=== PATIENT | female | born 1990 | race African-American/Black ===

== ENCOUNTER 2022-12-14 10:10 | Outpatient (CLI) | payer MEDICARE, OTHER | END 2022-12-14 10:11 | disposition home or self-care (01) | LOC: CSHLAB 10:10 | PROVIDERS: ATTEND Obstetrics & Gynecology | DX: Z01.812 Encounter for preprocedural laboratory examination (principal); Z20.822 Contact with and (suspected) exposure to COVID-19 | CPT/HCPCS: 85014; 85018; 85049; 86780; 86850; 86870; 86900; 86901; 87340; 87389; U0002 ==

== ENCOUNTER 2022-12-15 09:59 | Inpatient (IN) | payer MEDICARE, MEDICAID ==
[2022-12-14 11:44] LABS: Hemoglobin 9.1 g/dL (12.0-15.5); Platelet Count 155 10x3/uL (150-450)
[2022-12-14 12:10] LABS: SARS-CoV-2 NAA Rapid Test Not Detected (NotDetected)
[2022-12-14 12:19] LABS: HBSAg Index 0.12 S/CO (0-0.99); HIV (1/2) Antibody/Antigen Non-Reactive (NonReactive); HIV 1/2 INDEX 0.12 S/CO (<1.00); Hep B Surf Ag Non-Reactive S/CO (NonReactive)
[2022-12-14 12:20] LABS: Syphilis Antibody Nonreactive (Nonreactive); Syphilis Antibody Index 0.07 S/CO (<1.00 Non-Reactive)
[~2022-12-15 09:59] MED LIST: Dexamethasone 4 mg/ml Vial ONE; Ketorolac Tromethamine 30 MG/ML VIAL ONE; Metoclopramide HCl 10 MG/2 ML VIAL ONE; Morphine PF 10 MG/10 ML VIAL ONE; Ondansetron PF 4 MG/2 ML Vial ONE; Oxytocin 10 UNITS/ML VIAL ONE; Phenylephrine 40 MG/NS 250 ML 250 ML ONE
[2022-12-15 10:32] VITALS: BMI 38.9
[2022-12-15] MEDS ORDERED: Famotidine/PF 20 mg/2ml Vial ONE (11:44)
[2022-12-15] MEDS ORDERED: CEFAZOLIN 2 GM VIAL ONE (11:44)
[2022-12-15] MEDS ORDERED: NS w/ Oxytocin 30 units 500 ML ONE (14:56)
[2022-12-15] MEDS ORDERED: Methylergonovine 0.2 MG/ML VIAL IM PRN (15:36)
[2022-12-15] MEDS ORDERED: Ondansetron PF 4 MG/2 ML Vial IVP PRN (15:36)
[2022-12-15] MEDS ORDERED: HYDROcodone/Acetaminophen 5/325 mg Tablet PO PRN (15:36)
[2022-12-15] MEDS ORDERED: Lanolin Ointment 7 GM TUBE TOP PRN (15:36)
[2022-12-15] MEDS ORDERED: Boostrix 0.5 ML (Tdap) VIAL (>/=7 yrs of age) IM ONE (15:36)
[2022-12-15] MEDS ORDERED: hydrALAZINE 20 MG/ML VIAL SLOW IVP PRN (15:36)
[2022-12-15] MEDS ORDERED: Misoprostol 200 MCG TAB PR PRN (15:36)
[2022-12-15] MEDS: Ferrous Sulfate 325 MG TAB PO SCH (21:35)
[2022-12-15] MEDS ORDERED: Ibuprofen 800 MG TAB PO SCH (22:00)
[2022-12-16] MEDS ORDERED: Ketorolac Tromethamine 30 MG/ML VIAL IVP PRN (01:53)
[2022-12-16] MEDS ORDERED: diphenhydrAMINE 50 MG/ML VIAL IVP PRN (01:54)
[2022-12-16 05:39] LABS: Hemoglobin 8.7 g/dL (12.0-15.5); Mean Corpuscular Hemoglobin 27.7 pg (27.0-33.0); Mean Corpuscular Volume 84.1 fl (81.6-98.3); Mean Platelet Volume 13.5 fl (7.4-10.4); Platelet Count 188 10x3/uL (150-450); RBC Distribution Width 13.8 % (11.5-14.5); Red Blood Cell (RBC) Count 3.14 10x6/uL (3.90-5.03); White Blood Cell (WBC) Count 17.2 10x3/uL (3.5-10.5)
[2022-12-16] MEDS: Ferrous Sulfate 325 MG TAB PO SCH ×2 (08:01→21:32)
[2022-12-16] MEDS: HYDROcodone/Acetaminophen 5/325 mg Tablet PO PRN ×3 (12:07→21:31)
[2022-12-17] MEDS: HYDROcodone/Acetaminophen 5/325 mg Tablet PO PRN ×3 (01:38→19:30)
[2022-12-17] MEDS: Simethicone Chewable 80 MG TAB PO PRN ×3 (04:05→19:30)
[2022-12-17] MEDS ORDERED: Ibuprofen 800 MG TAB PO SCH ×2 (06:00→08:00)
[2022-12-17] MEDS: Ferrous Sulfate 325 MG TAB PO SCH ×2 (08:06→21:34)
[2022-12-17] MEDS: Ibuprofen 800 MG TAB PO SCH ×2 (14:33→21:38)
[2022-12-18] MEDS: HYDROcodone/Acetaminophen 5/325 mg Tablet PO PRN ×3 (01:38→10:24)
[2022-12-18] MEDS: Simethicone Chewable 80 MG TAB PO PRN ×2 (01:38→05:43)
[2022-12-18] MEDS: Ibuprofen 800 MG TAB PO SCH (05:21)
[2022-12-18 07:57] VITALS: BP 109/54; TEMP 97.8
[2022-12-18] MEDS: Ferrous Sulfate 325 MG TAB PO SCH (08:21)
== END 2022-12-18 13:55 | disposition home or self-care (01) | DRG 788 ==
LOC: CSHLD 09:59 → CSHPP 15:50
PROVIDERS: ADMIT Obstetrics & Gynecology; ATTEND Obstetrics & Gynecology
PROC: 10D00Z1 Extraction of Products of Conception, Low, Open Approach (ICD-10-PCS; principal; 2022-12-15)
DX: O30.043 Twin pregnancy, dichorionic/diamniotic, third trimester (principal); Z3A.37 37 weeks gestation of pregnancy; Z37.2 Twins, both liveborn; Z20.822 Contact with and (suspected) exposure to COVID-19; O34.211 Maternal care for low transverse scar from previous cesarean delivery
CPT/HCPCS: 36415; 51702; 85014; 85018; 85027; 85049; 86780; 86850; 86860; 86870; 86880; 86900; 86901; 86905; 86922; 86978; 87340; 87389; 88305; 88307; J1100; J1200; J1885; J2274; J2405; J2590; J2765; U0002